=== PATIENT | male | born 1955 | race Caucasian/White ===

== ENCOUNTER 2020-11-01 14:27 | Inpatient (IN) | payer OTHER, SELFPAY ==
[~2020-11-01] VITALS: Ht 170.2 cm; Wt 75.8 kg
--- NOTE | 2020-11-01 15:16 | NUR ---
CHARCOAL KILN BURNER: PT TO ROOM FROM LOBBY
--- NOTE | 2020-11-01 15:20 | NUR ---
pt ot er 12, h/o diverticulosis and has new onset abd pain since yesterday afternoon.
--- NOTE | 2020-11-01 15:43 | NUR ---
IV started, cultures drawn. pt aware on monitor VS rechecked.
[2020-11-01] MEDS ORDERED: CEFTRIAXONE PMX 1GM/50ML 50 ML IV ONE ×2 (16:00→17:30)
[2020-11-01] MEDS ORDERED: SODIUM CHLORIDE FLUSH 10ML SYR IVF ONE (16:00)
[2020-11-01] MEDS ORDERED: OMNIPAQUE 350 MG/ML, 100ML BOTTLE ONE (16:04)
[2020-11-01 16:10] LABS: BASOPHILS % (AUTO) 1 % (0-1); EOSINOPHILS % (AUTO) 0 % (1-7); LYMPHOCYTES % (AUTO) 12 % (22-44); MEAN CORPUSCULAR HEMOGLOBIN 32.8 pg (27.5-34.5); MEAN CORPUSCULAR HGB CONC 33.9 g/dL (33.2-36.2); MEAN PLATELET VOLUME 7.6 fL (7.4-10.4); MONOCYTES % (AUTO) 8 % (2-9); NEUTROPHILS % (AUTO) 80 % (42-75); PLATELET COUNT 225 x10^3/uL (130-400); RED BLOOD COUNT 5.07 x10^6/uL (4.38-5.82); RED CELL DISTRIBUTION WIDTH 13.1 % (9.4-14.8)
[2020-11-01 16:21] LABS: ALBUMIN 3.9 g/dL (3.4-5.0); ANION GAP 9 mmol/L (5-15); CALCIUM 9.6 mg/dL (8.5-10.1); CHLORIDE 108 mmol/L (98-107); CREATININE 1.26 mg/dL (0.7-1.3)
[2020-11-01] MEDS ORDERED: CEFTRIAXONE PMX 1GM/50ML 50 ML ONE (16:24)
[2020-11-01 16:34] LABS: MD SCAN
--- NOTE | 2020-11-01 16:54 | NUR ---
Covering primary nurse for break. IV abx started. Per dr Marie, no need for bc prior to starting abx. VSS. NAD. AIDET provided.
[2020-11-01] MEDS ORDERED: METRONIDAZOLE PMX 500MG/100ML 100 ML IV ONE (17:00)
[2020-11-01] MEDS ORDERED: MORPHINE SULFATE 4 MG/ML, 1ML IVPush ONE (17:00)
[2020-11-01] MEDS ORDERED: KETOROLAC 30 MG/1 ML IV PRN (17:30)
[2020-11-01] MEDS ORDERED: hydrALAzine 20 MG/ML, 1ML IV PRN (17:30)
[2020-11-01] MEDS ORDERED: morphine SULFATE 10 MG/ML, 1ML IVPush PRN (17:30)
[2020-11-01] MEDS ORDERED: ONDANSETRON ODT 4 MG PO PRN (17:30)
[2020-11-01] MEDS ORDERED: OXYcodone IR 5MG TABLET PO PRN (17:30)
[2020-11-01] MEDS ORDERED: TRAZODONE 50MG TABLET PO PRN (17:30)
[2020-11-01] MEDS ORDERED: ACETAMINOPHEN 325 MG TABLET PO PRN (17:30)
--- NOTE | 2020-11-01 17:32 | NUR ---
Admitting physician at [facility] with POC discussed. pt on do.
[2020-11-01] MEDS ORDERED: METRONIDAZOLE PMX 500MG/100ML 100 ML ONE (17:54)
[2020-11-01] MEDS: METRONIDAZOLE PMX 500MG/100ML 100 ML IV SCH (18:02)
--- NOTE | 2020-11-01 18:05 | NUR ---
Plan of care discussed. antibiotics started again. pt aware of admission.
--- NOTE | 2020-11-01 18:56 | NUR ---
Pt resting comfortably, warm blankets given. Attempted report, RN unavilable.
--- NOTE | 2020-11-01 19:04 | NUR ---
ATTMPTED TO GIVEN REPORT AGAIN
--- NOTE | 2020-11-01 19:29 | NUR ---
Report to Joanne WOODY. Pt to be transprted via tech. Charge nurse Liz aware of patient status.
[2020-11-01 20:16] VITALS: BP 128/85
[2020-11-01] MEDS: ENOXAPARIN 40 MG/0.4 ML SQ SCH (22:00)
[2020-11-01] MEDS: POTASSIUM CHLORIDE 20 MEQ in LACTATED RINGERS 1,000 ML IV SCH (22:58)
[2020-11-02] MEDS: METRONIDAZOLE PMX 500MG/100ML 100 ML IV SCH ×3 (01:28→18:03)
[2020-11-02 01:30] VITALS: BP 111/79
[2020-11-02 06:30] LABS: BASOPHILS % (AUTO) 1 % (0-1); EOSINOPHILS % (AUTO) 1 % (1-7); LYMPHOCYTES % (AUTO) 19 % (22-44); MEAN CORPUSCULAR HEMOGLOBIN 32.6 pg (27.5-34.5); MEAN CORPUSCULAR HGB CONC 33.6 g/dL (33.2-36.2); MEAN PLATELET VOLUME 7.9 fL (7.4-10.4); MONOCYTES % (AUTO) 9 % (2-9); NEUTROPHILS % (AUTO) 71 % (42-75); PLATELET COUNT 195 x10^3/uL (130-400); RED BLOOD COUNT 4.55 x10^6/uL (4.38-5.82); RED CELL DISTRIBUTION WIDTH 12.9 % (9.4-14.8)
[2020-11-02 06:32] LABS: MD NO
[2020-11-02 06:39] LABS: CALCIUM 8.6 mg/dL (8.5-10.1); CHLORIDE 109 mmol/L (98-107)
[2020-11-02 06:45] LABS: ALANINE AMINOTRANSFERASE 26 U/L (12-78); ALKALINE PHOSPHATASE 72 U/L (45-117); ANION GAP 9 mmol/L (5-15); BILIRUBIN,TOTAL 0.9 mg/dL (0.2-1.0); TOTAL PROTEIN 6.4 g/dL (6.4-8.2)
[2020-11-02 07:19] VITALS: BP 146/86
[2020-11-02] MEDS: POTASSIUM CHLORIDE 20 MEQ in LACTATED RINGERS 1,000 ML IV SCH ×2 (11:01→23:10)
[2020-11-02 13:17] VITALS: BP 131/88
[2020-11-02] MEDS ORDERED: CEFTRIAXONE PMX 2GM/50ML 50 ML IVPB SCH (17:30)
[2020-11-02 18:27] VITALS: BP 112/83
[2020-11-02] MEDS: ENOXAPARIN 40 MG/0.4 ML SQ SCH (21:16)
[2020-11-03 02:10] VITALS: BP_SYST 127; BP_SYST 128; BP_DIAS 81; BP_DIAS 89
[2020-11-03] MEDS: METRONIDAZOLE PMX 500MG/100ML 100 ML IV SCH ×2 (02:12→10:46)
[2020-11-03 06:03] LABS: BASOPHILS % (AUTO) 1 % (0-1); EOSINOPHILS % (AUTO) 1 % (1-7); LYMPHOCYTES % (AUTO) 20 % (22-44); MEAN CORPUSCULAR HEMOGLOBIN 32.9 pg (27.5-34.5); MEAN PLATELET VOLUME 7.7 fL (7.4-10.4); MONOCYTES % (AUTO) 8 % (2-9); NEUTROPHILS % (AUTO) 70 % (42-75); PLATELET COUNT 200 x10^3/uL (130-400); RED BLOOD COUNT 4.62 x10^6/uL (4.38-5.82); RED CELL DISTRIBUTION WIDTH 12.8 % (9.4-14.8)
[2020-11-03 06:04] LABS: MD NO
[2020-11-03 06:13] LABS: ANION GAP 6 mmol/L (5-15); CALCIUM 8.8 mg/dL (8.5-10.1); CHLORIDE 110 mmol/L (98-107)
[2020-11-03 06:14] LABS: CREATININE 1.08 mg/dL (0.7-1.3)
[2020-11-03 08:00] VITALS: BP 142/92
[2020-11-03] MEDS: POTASSIUM CHLORIDE 20 MEQ in LACTATED RINGERS 1,000 ML IV SCH (09:41)
[2020-11-03] MEDS ORDERED: AMOX1TAB64 PO (11:42)
[2020-11-03] MEDS ORDERED: ACID1TAB3 PO (11:42)
== END 2020-11-03 12:32 | disposition home or self-care (01) | DRG 392 ==
LOC: ED 15:26 → EDIP 17:10 → 4NE 19:52 → DCLOUNGE 11-03 12:24
PROVIDERS: ADMIT Internal Medicine; ATTEND Internal Medicine
DX: K57.32 Diverticulitis of large intestine without perforation or abscess without bleeding (principal); F12.20 Cannabis dependence, uncomplicated; N40.0 Benign prostatic hyperplasia without lower urinary tract symptoms
CPT/HCPCS: 36415; 74177; 80048; 80053; 82040; 85025; 96374; 99285; G0378; J0696; J1650; J3480; Q9967; J7120